=== PATIENT | female | born 1995 | race Caucasian/White ===

== ENCOUNTER 2023-01-08 09:59 | Outpatient (RCR) | payer BC, SELFPAY ==
--- NOTE | 2023-01-08 11:15 | BH.SGPN.GN ---
Behaviors/Verbalizations/Mental Status: []Pt alert and oriented, neatly dressed and groomed. Eye contact good. Motor activity appropriate. Speech within normal limits. Affect congruent, mood anxious. Thoughts linear, logical, no signs of hallucinations or delusions. Client Response/Progress/Benefit: [] Pt responded well to session, engaged in the experiential activity and attentive throughout group processing. Pt reported fear of failure has kept Pt from job opportunities, making friends, social situations, and living on her own. Pt completed fear of failure worksheet and was able to identify thoughts and behaviors that reinforce personal fear of failure including people pleasing, fear of judgment, and the ?what ifs?. Pt participated in group discussion regarding strategies to overcome fear of failure. Identified wanting to work on positive affirmations. Appeared to benefit from increased knowledge of strategies to combat fear of failure and gaining self-awareness. Pt will continue IOP tx to prevent decompensation, gain healthy coping skills, and improve daily functioning. ? Narrative Note: []
--- NOTE | 2023-01-08 14:43 | BH.MTP_ITS ---
Master Treatment Plan Patient Information Program Physician:: Dr. Trammell Primary Therapist:: Humaira Curran, [facility] Psychiatric Diagnoses Psychiatric Diagnoses:: 1. Bipolar 2 disorder (currently depressed) 2. PTSD 3. Generalized anxiety disorder 4. Binge eating disorder 5. Strong cluster B traits Diagnosis Code(s):: F31.81 Estimated LOS Estimated LOS (in weeks):: 6 Problem/Goal #1 Problem/Goal #1 Stated Goal:: Client will increase mood stability, decrease depressive symptoms, and anhedonia due to Bipolar II disorder through Intensive Outpatient Program. Description of Barriers: Potential treatment barriers include: negative thoughts, mood instability, impulsivity, distorted thoughts, limited healthy supports, and stressful home environment. Functional Impact: The patient is a 27-year-old single, female with a history of bipolar 2 depression, anxiety and suicidal ideation which has been worsening over the past 3 months. Work is a big stressor for the patient as there has been big changes at work and has been hard for her to function well at work and understand all the changes required in her job position. Planning on being FMLA due to MH impacting work functioning. The patient has a history of self-harm by cutting and the most recent episode was in July 2022 when she got in a hot shower to burn her skin. The patient has increased her alcohol use over the past 3 months and it had been up to 3-4 drinks about 4 days each week. She endorses sadness, hopelessness, worthlessness, apathy, lack of motivation, anhedonia, initial insomnia, low energy, decreased concentration, guilt, passive thoughts of , passive, fleeting suicidal ideation a few times a week only. She is a worrier by nature and has not had any panic attacks though since 1 month ago. Objectives Objective #1: Stated Objective: Client will learn and utilize 2-3 healthy coping strategies to manage depressive and hypomanic symptoms. Interventions: Therapist and groups will utilize CBT techniques to assist client with understanding the connection between thoughts, feelings and behaviors. Education will be provided on behavioral activation. Therapist will assist client in learning internal coping strategies to manage depressive symptoms, along with helping client identify triggers. Therapist will assist client with creating a hypomanic plan to help decrease impulsive choices/spending. Discharge Criteria: Client will have achieved this goal when can verbalize and has practiced at least 2 healthy coping strategies that successfully manage depressive and hypomanic symptoms. Target Date: 02/19/23 Review Date: 02/05/23 Objective #2: Stated Objective: Pt will decrease depressive symptoms AEB pt?s score on the DSM 5 cross-cutting measure and improve pt?s daily functioning. Interventions: Through groups and individual therapy, pt will be provided with education on cognitive distortions, mistaken beliefs, and identifying and combating negative self-talk. Therapist will assist pt with getting back into the activities she once enjoyed as well as increasing healthy coping strategies. Discharge Criteria: Pt will have met this goal when pt?s score on the DSM 5 cross cutting measure for depression has been decreased and per pt?s report daily functioning has improved. Target Date: 02/19/23 Review Date: 02/05/23 Problem/Goal #2 Problem/Goal #2 Stated Goal:: Stabilize anxiety level while increasing ability to function and decreasing ruminative thoughts on a daily basis through Intensive Outpatient Program. Functional Impact: The patient is a 27-year-old single, female with a history of bipolar 2 depression, anxiety and suicidal ideation which has been worsening over the past 3 months. Work is a big stressor for the patient as there has been big changes at work and has been hard for her to function well at work and understand all the changes required in her job position. Planning on being FMLA due to MH impacting work functioning. The patient has a history of self-harm by cutting and the most recent episode was in July 2022 when she got in a hot shower to burn her skin. The patient has increased her alcohol use over the past 3 months and it had been up to 3-4 drinks about 4 days each week. She endorses sadness, hopelessness, worthlessness, apathy, lack of motivation, anhedonia, initial insomnia, low energy, decreased concentration, guilt, passive thoughts of , passive, fleeting suicidal ideation a few times a week only. She is a worrier by nature and has not had any panic attacks though since 1 month ago. Objectives Objective #1: Stated Objective: Client will learn and implement 2-3 calming skills to reduce overall anxiety and manage anxiety symptoms. Interventions: Therapist and groups will teach calming/relaxation skills and how to apply these skills to everyday life. Discharge Criteria: Client will have achieved this goal when can verbalize and consistently utilize at least 2 calming strategies that client reports help decrease anxious symptoms. Target Date: 02/19/23 Review Date: 02/05/23 Objective #2: Stated Objective: Pt will decrease anxious symptoms AEB pt?s score on the DSM 5 cross-cutting measure improve pt?s daily functioning. Interventions: Through groups and individual therapy, pt will be provided education about anxiety?s impact on body and common physiological reaction to anxiety. Therapist will teach pt appropriate breathing techniques and build healthy coping skills to manage daily anxieties. Discharge Criteria: Pt will have met this goal when pt?s score on the DSM 5 cross cutting measure for anxiety has been decreased and per pt?s report daily functioning has improved. Target Date: 02/05/23 Review Date: 02/19/23
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
--- NOTE | 2023-01-08 15:26 | BH.MDN ---
Multi-Disciplinary Note Note 30-min Individual: Time Started:: 09:00 Date: 01/08/23 Purpose of session/treatment goals addressed:: Purpose of session was to gather background information, build rapport, and identify treatment goals for IOP. Eye Contact:: Good Motor Activity:: Appropriate Appearance:: Neat Speech:: Appropriate Mood:: Anxious Affect:: Congruent Thoughts:: Linear, Logical and No evidence of hallucinations/delusions noted Staff Interventions:: psychoeducation on: (cognitive triangle and behavior activation), CBT techniques, rapport building, treatment planning and goal setting Client Response:: Client responded well to session as evidenced by her opening up to therapist. Client shared that 3 months ago she started to notice her depression and anxiety worsening. Client stated stressful to live at home because she is often in conflict with her mom. Client reported there were changes at work that have increased her stress and she was having difficulty performing at her baseline. Client stated she started having more suicidal thoughts which prompted her to reach out for help. Client identified additional stressor as her new relationship because there is constant bickering between them. Client stated although they've only been dating for two months she doesn't want to end it because he does provide emotional support at times and reported he has met her family. Client reported she has noticed her coping skills with all of her stressors is drinking alcohol and starting to engage in binge eating again. Client stated she has been treated for binge eating disorder in the past and still is connected with this therapist. Client reported while in IOP she would like to learn new strategies to help her manage depressed and anxious symptoms. Client stated she wants to learn about healthy relationships because she stated she doesn't believe she knows what healthy looks like. Client responded well to psychoeducation about cognitive triangle and behavior activation. Client shared she used to engage in hobbies/activities like: hiking, swimming, walking, and crafting. Client reported she has not done these things in several months. Stated her goal for the next week is to engage in at least one of her previous hobbies. Risks/Concerns:: Daily thoughts of suicide. Denies active plan or intention to date. feels able to maintain safety. no access to firearms. Progress Toward Goals/Plan:: Progress not observed, first day in IOP. Session focused on building rapport, gathering background information, identifying current symptoms, and solidifying treatment goals. Client to continue IOP to improve daily functioning, increase healthy coping, and prevent decompensation. Time Stopped:: 09:35
--- NOTE | 2023-01-10 09:20 | BH.NA ---
Physical Data Vital Signs Pulse Rate: 68 Blood Pressure: 143/94 Height/Weight Height: 1.66 m Weight:: 107.501 kg Weight in Pounds: 237.0 lbs Current Medication Compliance Medication Compliance Do you take your medication as prescribed?: Yes Nutritional History Appetite Nutritional Instructions: Describe your appetite:: Fair Additional nutritional information:: Client states she has gained about 5lbs in the last month. Client states she has had issues with binge eating since 2018 and has had some counseling regarding it, but states the last month she has had an increase of binge eating, but states she only occasionally vomits. Functional Assessment Sleep Pattern Describe any problems with sleeping: Client states she sleeps about 6 hours per night. Activities Motor Activity:: Functional Sensory/Communication Assess Vision Problems Do you have any vision problems?: Glasses Communication Problems Do you have difficulty understanding what people are saying?: No Medical Problems/History Hematologic Conditions Hematologic: Anemia (taking iron supplement) and Other (See comments) ([place] type 1) Pain Assessment Do you have acute or chronic pain?: No Surgical History Surgical History Have you had any surgeries? If so, list type and date:: Yes (wisdom teeth, tonils, gallbladder, knee) Substance Abuse Substance Abuse Please describe substance abuse in the last 30 days:: Client states for the past 1-3 months, she has been drinking alcohol 3-4 days per week, 3-4 drinks per day. Client denies tobacco or substance use. Client drinks 3 cups of caffeinated coffee per day. Mental Status Summary Mental Status Significant Findings/Observations on Appearance and Mood:: Client is alert and oriented x 4. Client is cooperative with assessment. Client makes good eye contact. Client's voice has normal rate and volume. Client has appropriate affect. Client has normal processing. Client denies delusions/hallucinations. Client denies SI this day. Suicide Assessment Suicidal Ideation Are you currently or have you been suicidal in the past?: Yes Suicidal Intentional Rating Scale (SIRS): Suicidal thoughts (past) (denies SI today, reports some passive SI at times but no intent/plan) Physician Notification Past Psychiatric History MH Treatment Hx Past Psychiatric Medications:: Latuda and Abilify made her tired, Wellbutrin gave her skin crawling feeling, and Effexor Age of first mental health symptoms: Client first took medication for depression/anxiety around age 21. Client was diagnosed as bipolar in 2019, around age 23. Fall Risk Assessment Age Age: Less than 60 Mental Status Mental Status: Willing & able to ask for assistance when needed Physical Status Physical Status: No problems Impairments Impairments: None Elimination Elimination: Continent AND independent Gait or Balance Gait or Balance: Walks independently Hx of Falls History of falls in the past 6 months: No known history Medications/Substances Psychotropics:: Antidepressants and Antipsychotics Medications/substances used within the past 24 hours or ordered to administer: 1-2 of the medications/substances listed above Total Score Total Points:: 1 RN Summary of Impressions Impressions Recommendations Impressions: Psychiatric Issues: 1. Bipolar 2 disorder (currently depressed) 2. PTSD 3. Generalized anxiety disorder 4. Binge eating disorder 5. Strong cluster B traits Level of Care How do the client's current symptoms and functional deficits support need for this level of care?: Client was referred to IOP by her outpatient psychiatrist for increased depression and SI. Client states the last several months have been stressful. Client reports stressors being changes at work that have made her job more difficult, her brother getting in December, and she is in a new relationship. Client reports some passive thoughts of SI at times, but denies intent or plan and states the thoughts pass quickly. Client does report anhedonia, erratic mood, decreased energy, and feeling overall depressed. Client states her binge eating has made her mental health worse as well. IOP will promote gains and prevent further decompensation while providing social support and skills training.
--- NOTE | 2023-01-10 10:05 | BH.SGPN.GN ---
Behaviors/Verbalizations/Mental Status: [] Client alert and oriented, casually dressed and groomed. Eye contact good. Motor activity appropriate. Speech within normal limits. Affect constricted, mood dysthymic. Thoughts linear, logical, no signs of hallucinations or delusions. Client Response/Progress/Benefit: []Client was an active participant in activity and taking notes during group discussion. Attentive during psychoeducation on coping skills, why people use unhealthy coping skills, and how to replace unhealthy coping skills. Group came up with list of negative coping skills that included substance use, avoidance, lashing out, and escaping from reality. Group discussed the effects of how negative coping skills can impact mental health in a negative way. Benefited from increased understanding of unhealthy coping skills and the need for developing healthy interna and external coping skills. client will continue IOP tx to challenge negative thought patterns and increase consistent application of self care. Narrative Note: []
[2023-01-10 11:01] VITALS: BP 143/94; PULSE 68
--- NOTE | 2023-01-10 11:05 | BH.SGPN.GN ---
Behaviors/Verbalizations/Mental Status: [] Client alert and oriented, neatly dressed and groomed. Eye contact good. Motor activity appropriate. Speech within normal limits. Affect constricted, mood euthymic. Thoughts linear, logical, no signs of hallucinations or delusions. Client Response/Progress/Benefit: [] Client responded well to session AEB taking notes and providing input and examples throughout. Group discussed the different categories of coping skills which included distraction, emotional release, grounding, self-love, and thought challenging. Client created a coping skill menu identifying various skills to try in each category. Client?s coping skill menu included: phone games, phone a friend, breathing, saying no to some things, and writing down 3 positives each day. Appeared to benefit from increasing repertoire of healthy coping skills. Client will continue IOP tx to improve daily functioning and prevent decompensation. Narrative Note: []
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
--- NOTE | 2023-01-10 13:35 | BH.DR.ITP ---
Initial Treatment Plan Patient Information Visit Information: ADMISSION DATE: EXPECTED LOS: 4-6 weeks Problems/Symptoms Problem #1:: Depression Symptom:: Sadness, hopelessness, guilt, anhedonia, lack of motivation, low energy, decreased concentration, passive thoughts of , passive, fleeting suicidal ideation Problem #2:: Anxiety Symptom:: Worry, rumination, flashbacks, avoidance, reexperiencing
--- NOTE | 2023-01-12 09:00 | BH.SGPN.GN ---
Behaviors/Verbalizations/Mental Status: [] Eye contact is good. Motor activity is appropriate. Appearance is casual. Speech is Appropriate. Mood is depressed/irritable. Affect is congruent. Thoughts are linear and logical. No evidence of psychosis. Reviewed daily check in sheet and pt reports 1/5 for suicidal thoughts and 1/5 for intent. This is actually a decrease in scores from earlier this week. Client Response/Progress/Benefit: [] Pt participated at times during the group discussion. Attentive. Emotion for today is tired. Daily symptom tracker notes 3/5 for anxiety and 2/5 for depression. Mental health win was that went to the gym twice this week. Sahred how this is helpful to her mental health. Another win included cleaning last night. She talked at leght regarding people pleasing behaviors and how they impact her mental health. I gave up my weekend to someone else again. Pt reports that she would like to have the weekend to herself (Self-care) as she has not had this for several months, however she agreed to a function. Feels obligated to spend time with others even though it is not enjoyable and often leads to feeling burned out. Group discussion on assertive communication of needs, boundary setting, and impact of people pleasing which was beneficial. Will contine in IOP to maintain Narrative Note: []
--- NOTE | 2023-01-12 10:10 | BH.SGPN.GN ---
Behaviors/Verbalizations/Mental Status: []Client alert and oriented, casually dressed and groomed. Eye contact good. Motor activity appropriate. Speech within normal limits. Affect congruent, mood anxious. Thoughts linear, logical, no signs of hallucinations or delusions. Client Response/Progress/Benefit: []Client receptive to session AEB providing input throughout, listening attentively to others, and taking notes. Attentive throughout psychoeducation on the cognitive triangle and maintenance cycles. Engaged in group discussion reviewing the impact of daily activities and behaviors in either reinforcing unhealthy maintenance cycles and depression or assisting in reducing symptoms (?down? vs ?up? activities). Client identified common ?down? activities they engage in as: staying in bed, not doing chores, not doing self-care, and taking on too many tasks. Common ?Up? activities client identified included: taking a bath, getting outside in nature, cuddling pets, video games, and working out. Appeared to benefit from increased awareness of current behaviors and impact these have on mental health. Recommended to continue IOP tx to decrease anxiety, increase healthy coping, and prevent decompensation.
--- NOTE | 2023-01-12 11:15 | BH.SGPN.GN ---
Behaviors/Verbalizations/Mental Status: []Pt alert and oriented, neatly dressed and groomed. Eye contact good. Motor activity appropriate. Speech within normal limits. Affect congruent, mood euthymic. Thoughts linear, logical, no signs of hallucinations or delusions. Client Response/Progress/Benefit: []Pt responded well to session, attentive and engaged in activity. Group shared having patience and being willing to re-evaluate helped the group be success. Group discussed values and the benefits that knowing one's values can have on one's mental health. These included: increasing motivation, resolved cognitive dissonance, and less stress. Pt explored own values and identified physical wellbeing and hobbies as their top two values. Pt set a goal to exercise 4 times a week and engage in one of her hobbies 30min a day to live according to values. Pt appeared to benefit from exploring values and creating a weekly goal. Pt will continue IOP tx to prevent decompensation, improve daily functioning, and increase healthy coping skills. Narrative Note: []
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
--- NOTE | 2023-01-17 11:10 | BH.SGPN.GN ---
Behaviors/Verbalizations/Mental Status: [] Eye contact is good. Motor activity is appropriate. Appearance is casual. Speech is Appropriate. Mood is depressed. Affect is congruent. Thoughts are linear and logical. No evidence of psychosis. Client Response/Progress/Benefit: [] Pt was an active participant in group discussions and experiential activity. Attentive during psychoeducation. Patient participated during interactive discussion on strategies to overcome several obstacles to mental wellness including People-pleasing, Low Self-esteem, unhealthy coping skills, isolation, loneliness, and negative thinking. Pt choose the barrier of people-pleasing to work on this week and identified strategies to incorporate including setting boundaries and delaying responses to allow myself from over-extending myself. Benefited from increased awareness of obstacles to mental wellness and strategies to help overcome those obstacles. Will continue in IOP to prevent decompensation, stabilze mood, and increase healthy coping. Narrative Note: []
--- NOTE | 2023-01-18 09:05 | BH.SGPN.GN ---
Behaviors/Verbalizations/Mental Status: [] Eye contact is good. Motor activity is appropriate. Appearance is casual. Speech is Appropriate. Mood is depressed. Affect is congruent. Thoughts are linear and logical. No evidence of psychosis. Reviewed daily check in sheet and pt reports 2/5 for suicidal thoughts and 1/5 for intent. This is below baseline for patient showing improvement. Client Response/Progress/Benefit: [] Pt participated at times during the group discussion. Attentive. Daily symptom tracker notes 5/5 for anxiety and 4/5 for depression. Emotion for today is determined. Mental health wins include cleaning her house and decreasing clutter. Elaborated on how these are mental health wins noting increased motivation/energy and completing tasks. Admits that getting up getting here was a challenge this AM however able to use opposite-action and thought reframing skills to increase motivation to get to treatment. Progress noted per pt report as she is using skills and reports completing responsibilities rather than avoiding. Benefited from group support, encouragement, and feedback. Will continue in IOP to prevent decompensation, maintain safety, and improve functioning to return to work. Narrative Note: []
--- NOTE | 2023-01-18 10:10 | BH.SGPN.GN ---
Behaviors/Verbalizations/Mental Status: []Pt alert and oriented, neatly dressed and groomed. Eye contact good. Motor activity appropriate. Speech within normal limits. Affect congruent, mood depressed. Thoughts linear, logical, no signs of hallucinations or delusions. Client Response/Progress/Benefit: []Pt was an active participant in group discussions and activity. Attentive during psychoeducation. Pt along with peers were able to identify several negatives on the picture given to the group. Pt and peers also identified positives in the picture and made the connection that finding positives is much more difficult. Interactive discussion on the definition of perspective, how perspective is formed, and why perspective is important in treatment. Pt along with peers also identified that perspective can either motivate and encourage treatment or be a barrier to receiving help. Pt shared today her perspective is more negative due to recently having more panic attacks. However, pt shared she used opposite action today which is helping pt challenge her perspective and be more hopeful. Pt reflected that being more hopeful helps pt stay motivated to get better. Will continue in IOP to stabilize moods, reduce isolation, and prevent decompensation. Narrative Note: []
--- NOTE | 2023-01-18 10:10 | BH.SGPN.GN ---
Behaviors/Verbalizations/Mental Status: [] Eye contact is good. Motor activity is appropriate. Appearance is casual. Speech is Appropriate. Mood is anxious. Affect is congruent. Thoughts are linear and logical. No evidence of psychosis. Client Response/Progress/Benefit: []Pt engaged participant AEB listening to others, engaging in activity, and providing feedback at times. Attentive during psychoeducation and provided insight into obstacles in the way of mental wellness. Pt shared with group current mental health reality and desired mental health reality. Stated making decisions and coming to therapy as steps she is currently making to get closer to desired reality. Identified barriers to desired reality include: poor boundaries, bad coping skills, and people pleasing. Benefited from taking look at current mental health state and obstacles for progress. Pt to continue IOP to increase healthy coping, decrease anxiety, and prevent decompensation.
--- NOTE | 2023-01-18 11:10 | BH.SGPN.GN ---
Behaviors/Verbalizations/Mental Status: []Pt alert and oriented, neatly dressed and groomed. Eye contact good. Motor activity appropriate. Speech within normal limits. Affect congruent, mood present. Thoughts linear, logical, no signs of hallucinations or delusions. Client Response/Progress/Benefit: []Pt was attentive and contributed to small group discussion. Pt completed strengths exploration worksheet, identifying creativity, kindness, and adventurousness as personal strengths. Pt able to acknowledge how these strengths are helping pt and can continue to help pt in mental health journey. Pt worked with group to identify strategies that can help increase utilization of personal strengths and how to challenge one?s perspective in general. Pt identified wanting to work on using opposite action and practicing self-affirmations to help challenge perspective. Benefited from identifying personal strengths and strategies for enhancing use of identified strengths. Pt to continue IOP tx to prevent decompensation, improve daily functioning, and increase self-confidence. Narrative Note: []
--- NOTE | 2023-01-19 10:10 | BH.SGPN.GN ---
Behaviors/Verbalizations/Mental Status: []Pt alert and oriented, casually dressed and groomed. Eye contact fair. Motor activity appropriate. Speech within normal limits. Affect constricted, mood dysthymic. Thoughts linear, logical, no signs of hallucinations or delusions. Client Response/Progress/Benefit: []Pt receptive of session, actively engaged throughout AEB taking notes and listening to discussion. Appeared to connect with group topic of cognitive distortions and the impact of thought patterns on mental health, coping behaviors, and relationships. Pt reports connecting with distortions of all or nothing and shoulds. Pt stated getting stuck in the black or white keeps her from new opportunities and not taking action. Pt appeared to benefit from gaining insight on distorted thinking patterns and how this impacts overall mental health. Will continue IOP tx to increase consistent use of healthy coping, improve crisis management, and prevent decompensation.
--- NOTE | 2023-01-19 11:10 | BH.SGPN.GN ---
Behaviors/Verbalizations/Mental Status: [] Eye contact is good. Motor activity is appropriate. Appearance is casual. Speech is Appropriate. Mood is euthymic. Affect is full. Thoughts are linear and logical. No evidence of psychosis. Client Response/Progress/Benefit: [] Pt was an active participant during group discussions and activity. Pt was placed in a smaller group and participated in quiz-show format in which small groups competed against each-other to answer questions based on identifying, challenging, and reframing cognitive distortions. Pt was engaged in her smaller group, participated in group interactions to brainstorm answers, and appeared to be comprehending cognitive distortions. Stated They are similar to logical fallacies which helped me a lot. Benefited from gaining further insight and awareness of cognitive distortions as well as practicing ways to reframe and challenge thoughts. Will continue in IOP to prevent decompensation, increase healthy coping, and improve functioning. Narrative Note: []
--- NOTE | 2023-01-22 09:00 | BH.SGPN.GN ---
Behaviors/Verbalizations/Mental Status: [] Eye contact is good. Motor activity is appropriate. Appearance is casual. Speech is Appropriate. Mood is depressed. Affect is congruent. Thoughts are linear and logical. No evidence of psychosis. Reviewed daily check in sheet and no reports of suicidal ideations or intent. Client Response/Progress/Benefit: [] Pt participated at times durig the group discussion. Attentive. Daily symptom tracker notes 09/10 for depression and anxiety. Reports improve mood and functioning since last week. Shared that she started a journal over the weekend. Briefly described her motivation for starting the journal as well as what she plans to enter in the journal. Utilized self-care and gave herself some time to decompensate after a stressful day. Shared times over the weekend in which her depression and anxiety where significant. Benefited from group support, encouragement, and feedback. Progress noted per pt report. Will continue in IOP to maintain safety, prevent decompensation, and to improve functining to return to work. Narrative Note: []
--- NOTE | 2023-01-22 10:15 | BH.SGPN.GN ---
Behaviors/Verbalizations/Mental Status: []Pt alert and oriented, casually dressed and groomed. Eye contact good. Motor activity appropriate. Speech within normal limits. Affect congruent, mood euthymic and anxious. Thoughts linear, logical, no signs of hallucinations or delusions. Client Response/Progress/Benefit: []Pt responded well to session, attentive and providing to discussion. Pt connected with the quote and discussion reviewing the functions of various emotions. Attentive throughout psychoeducation on the functional role and benefits of guilt, as well as differences between appropriate and inappropriate guilt. Group discussed the harmful impacts of unmanaged guilt which included poor boundaries, feeling inadequate, and creating an unhealthy maintenance cycle. Pt participated in group activity highlighting the impacts of inappropriate guilt in team collaboration or reaching a goal. Pt then completed a self-reflection activity in which they identified their own experiences with inappropriate guilt and impacts on pt?s mental health. Shared struggling with inappropriate guilt when someone else is upset or had a bad day. Pt appeared to benefit from learning about the different types of guilt and how unmanaged guilt can impact mental health. Pt will continue IOP tx to increase mood stability, promote healthy communication with supports, and continue to improve daily functioning. Narrative Note: []
--- NOTE | 2023-01-22 11:15 | BH.SGPN.GN ---
Behaviors/Verbalizations/Mental Status: []Pt alert and oriented, neatly dressed and groomed. Eye contact good. Motor activity appropriate. Speech within normal limits. Affect congruent, mood depressed. Thoughts linear, logical, no signs of hallucinations or delusions. Client Response/Progress/Benefit: [] Pt engaged participant AEB listening attentively to others and providing input throughout group. During challenge activity pt worked cooperatively with small group. Pt made connection that it takes patience and problem solving to work through appropriate and inappropriate guilt. Pt worked with their small group to identify strategies to manage unhealthy guilt. Pt stated pt often feels inappropriate guilt when pt puts her needs as a priority. Pt selected wanting to work on reducing her apologizing to challenge inappropriate guilt. Pt seemed to benefit from learning about strategies to manage appropriate and inappropriate guilt. Pt to continue IOP to improve daily functioning, reduce negative thinking patterns, and improve self-esteem. ? Narrative Note: []
--- NOTE | 2023-01-24 09:00 | BH.SGPN.GN ---
Behaviors/Verbalizations/Mental Status: [] Eye contact is fair. Motor activity is appropriate. Appearance is casual, slightly disheveled. Speech is Appropriate. Mood is depressed. Affect is constricted. Thoughts are linear and logical. No evidence of psychosis. Reviewed daily check in sheet and no reports of suicidal ideations or intent. Client Response/Progress/Benefit: [] Pt participated when prompted. Attentive. Daily symptom tracker notes 5 for depression and /5 for anxiety. Identified mood and functioning as worse today compared to Sunday. Client reported mental health positive as meal prepping for a couple of days. Stated additional positive as doing her makeup this morning despite feeling crappy yesterday and today. Reported current stressor as noticing increased depressed symptoms. Seemed to benefit from support from peers. Client reported he Will continue in IOP to prevent decompensation, decrease anxiety, and continue use of healthy coping skills.
--- NOTE | 2023-01-24 21:20 | BH.MDN ---
Multi-Disciplinary Note Note 45-min Individual: Time Started:: 11:20 Date: 01/24/23 Purpose of session/treatment goals addressed:: Purpose of session was to address goals 1 and 2 from MTP. Eye Contact:: Fair Motor Activity:: Restless Appearance:: Casual (slightly disheveled compared to her baseline) Speech:: Appropriate Mood:: Anxious and Depressed Affect:: Constricted Thoughts:: Linear, Logical and No evidence of hallucinations/delusions noted Staff Interventions:: thought challenging, motivational interviewing, CBT techniques, strengths perspective, taught coping skills (malhotra mind) and other (safety plan) Client Response:: Client reported she has been continuing to struggle since last weekend. Client reported she did follow through of engaging in behavior activation by doing renetta art again. Client reported she also started to use the brain dump journal at night to help with sleeping and decreasing her racing thoughts. Client reported she also journaled about her boundaries within her relationship, expectations of each other, and identified her deal breakers. Client stated she had really good conversation with her boyfriend and is hopeful they are on the same page. Client stated she thinks she is struggling more because she feels like there is no area of her life that is stable. Client stated there is constant chaos at home, conflicts with her boyfriend, and worries about returning back to work because of the stress and chaos. Client connected with therapist suggestion of journaling about what she enjoys about work and what is within her control when she returns to help manage the parts of her job that she doesn't enjoy. Client worked with therapist to complete safety plan to help with crisis management. Client agreed it would be helpful to have a crisis plan since she continues to struggle with utilizing healthy coping skills in the moment. Client wants to decrease her use of drinking alcohol and binging food as a coping skill. Client agreeable to communicate importance of her family to not have alcohol around and to encourage boyfriend to be supportive of her goal of not drinking alcohol. Risks/Concerns:: Client reports recent passive thoughts of . Denies active suicidal ideation, plan or intention to date. Future oriented. No access to firearms. Identifies her animals and family as protective factors. Completed safety plan together and provided copy for patient. Progress Toward Goals/Plan:: Continued decompensation with client reporting increased depression and anxiety over the last two weeks. Client's relationship seems to be trigger to increased depression and use of destructive coping skills like drinking. Progress can be noted with client reporting starting to use skills like opposite action and getting back involved in hobbies. Client to continue IOP to increase healthy coping skills, challenge negative thoughts, and prevent decompensation. Time Stopped:: 12:00
--- NOTE | 2023-01-25 10:10 | BH.SGPN.GN ---
Behaviors/Verbalizations/Mental Status: [] Eye contact is good. Motor activity is appropriate. Appearance is casual. Speech is Appropriate. Mood is anxious. Affect is congruent. Thoughts are linear and logical. No evidence of psychosis. Client Response/Progress/Benefit: [] Pt was an active participant in group discussions and activities. Attentive during psychoeducation. Engaged during activity in which she identified which type of foods (i.e. carbs, sugar, salt, fast food, caffeine, etc) she seeks out when sad, tired, angry, rushed, anxious, etc. Pt was able to identify an unhealthy food cycle which included; don't pack or prep lunch --> fast food. sweet/salty snacks ---> feel guilty, crave unhealthy dinner, tired. Pt was able to identify the impact that certain foods have on her mental health which was beneficial. Will continue in IOP to prevent decompensation, stabilize mood, and increased healthy coping skills. Narrative Note: []
--- NOTE | 2023-01-26 09:00 | BH.SGPN.GN ---
Behaviors/Verbalizations/Mental Status: [] Eye contact is good. Motor activity is appropriate. Appearance is casual. Speech is Appropriate. Mood is depressed. Affect is congruent. Thoughts are linear and logical. No evidence of psychosis. Reviewed daily check in sheet and no reports of suicidal ideations or intent. Client Response/Progress/Benefit: [] Participated at times during the group discussion. Attentive. Shared with the group that she was ?spiraling? last night. Reports depression and overwhelming negative thoughts. Shared anxiety, panic, and passive thoughts of . She however was able to identify her warning signs earlier than in the past and proceeded to utilize skills which ultimately proved to be beneficial. She reached out to support and was able to utilize internal coping skills to minimize depression and anxiety. Progress noted with increased confidence in her ability to manage crisis. Benefited from group support, encouragement, and feedback. Will continue in IOP to maintain safety, prevent decompensation, and to stabilize mood to return to work. Narrative Note: []
--- NOTE | 2023-01-26 10:15 | BH.SGPN.GN ---
Behaviors/Verbalizations/Mental Status: []Pt alert and oriented, casually dressed and groomed. Eye contact good. Motor activity appropriate. Speech within normal limits. Affect constricted, mood agitated. Thoughts linear, logical, no signs of hallucinations or delusions. Client Response/Progress/Benefit: []Pt was an active participant during small group discussions. Attentive during psychoeducation on the six types of boundaries. Pt along with peers contributed to interactive discussion on defining what a boundary is and group identified challenges to setting boundaries. Pt discussed personal barriers of fear of retaliation. Pt?s group also identified the benefits of boundary setting which included ?self-respect and clear expectations.?? Pt contributed during his small group discussion. benefited from increased awareness and insight on the importance/benefit to setting health boundaries. Will continue IOP tx to improve mood stability, reduce isolation, and increase emotional regulation skills. Narrative Note: []
--- NOTE | 2023-01-26 15:34 | BH.MDN ---
Multi-Disciplinary Note Note 45-min Individual: Time Started:: 11:10 Date: 01/26/23 Purpose of session/treatment goals addressed:: Purpose of session was to address goals 1 and 2 from MTP. Pt's mood was more down throughout day, not her typical behavior so asked if she needed a check-in and she reported yes. Eye Contact:: Good Motor Activity:: Restless Appearance:: Casual (slightly disheveled compared to her baseline.) Speech:: Rapid Mood:: Euthymic and Other (hypomanic) Affect:: Full Thoughts:: Racing and No evidence of hallucinations/delusions noted Staff Interventions:: thought challenging, CBT techniques, mindfulness skills, strengths perspective, taught coping skills (created plan to help manage impulsive urges while hypomanic) and other (reviewed safety plan created earlier in week) Client Response:: Client reported she continued to struggle since Sunday with mood spiraling down. Client stated she did try to use skills yesterday like walking, renetta art, and breathing. Client stated the skills weren't helping calm or mind or improve her mood. Client reported she started binge eating to make herself feel better, but stated it only made her feel worse. Client stated she then went to the gas station and picked up alcohol. Client reported she drank alcohol to make her mind stop racing. Client reported she didn't take her medications last night because of drinking and didn't sleep much, but is feeling energized today. Client stated she thinks she is in a hypomanic state today due to increased energy, ideas of buying things impulsively, and desire to book a trip. Client reported when she is hypomanic it typically lasts for 2-4 days then her mood usually drops into a deeper depression. Client stated she doesn't know what to do when she is hypomanic to stop herself from making poor decisions. Client worked with therapist to develop a plan. Client receptive to giving her wallet and keys to her mom or sister so she doesn't drive somewhere impulsively and doesn't spend lots of money on things she doesn't need. Client also will communicate to family and boyfriend that she needs to refrain from alcohol use. Client reported her mom has been locking up the alcohol at home, but reported sometimes her boyfriend will buy alcohol for her or suggest them getting drinks. Client agreed she will be very clear with her boyfriend about what she needs. Client agreed to also remove her saved credit card information off any apps and laura devices so she doesn't make any large purchases. Client also agreeable to talk with her mom and sisters about locking up sharp objects and medications as a way to be proactive in case her mood does drop over the weekend into a deeper depression. Client stated she is spending the weekend with her boyfriend and thinks this will help because she can be honest with him about what's going on. Client reported feels comfortable with plan developed. Risks/Concerns:: Client is reporting increased impulsive thoughts and thinks she is hypomanic. Developed plan to help decrease impulsive decisions. See above for plan. Client denies active suicidal ideation, plan, or intention to date. Client reports ability to keep self safe. Client reviewed safety plan with therapist. Progress Toward Goals/Plan:: Progress continues to decompensate AEB client reporting use of binge eating and alcohol use as coping skills. However, client did note she attempted use of several healthy coping skills prior to engaging in her unhealthy skills, which is progress compared to the previous weeks. Client struggling with mood instability and severe anxiety. Client struggling with reverting back to unhealthy skills of binge eating and drinking alcohol. Client to continue IOP to increase consistent use of healthy coping, challenge distorted thoughts, and prevent decompensation. Time Stopped:: 11:50
--- NOTE | 2023-01-29 09:00 | BH.SGPN.GN ---
Behaviors/Verbalizations/Mental Status: []Pt alert and oriented, casually dressed and groomed. Eye contact fair. Motor activity restless. Speech within normal limits. Affect constricted, mood anxious. Thoughts linear, logical, no signs of hallucinations or delusions. Reviewed pt?s symptom tracker, no reported suicidal ideation, denies plan, or active intent. Client Response/Progress/Benefit: [] Pt responded well to session, open to contributing with group and engaged. Per symptom tracker pt reports a 0/5 for depression and 3/5 for anxiety. Patient reported mental positive as getting out of the house and going hiking over the weekend. Stated she felt relaxed and uplifted when hiking. Client stated additional mental thought when as doing a guided meditation to help herself calm down after having a panic attack. Client stated feeling anxious about going back to work for 2 days next week. Stated she's been working on journaling about what is within her control when she goes back to work. Additional win as following through with plans created in individual therapy session from last week. Seemed to benefit from support from peers. Pt will continue IOP tx to continue use of healthy coping skills, assist with transition back to work, and prevent decompensation.
--- NOTE | 2023-01-29 10:10 | BH.SGPN.GN ---
Behaviors/Verbalizations/Mental Status: [] Eye contact is good. Motor activity is appropriate. Appearance is casual. Speech is Appropriate. Mood is anxious. Affect is congruent. Thoughts are linear and logical. No evidence of psychosis. Client Response/Progress/Benefit: [] Pt was an active participant in group discussion. Attentive during psychoeducation on SMART goals. Participated in experiential activity. Engaged during interactive discussion on the benefits of setting goals which group identified as; increase self-worth, increase confidence, can motivate us, can lead to personal growth, and can give one a sense of purpose. Participated during interactive discussion on possible obstacles to obtaining goals which involved; little patience, low motivation, feeling burned out, setting unrealistic goals, limited time, stressors, other responsibilities, negative self-talk, doubt, cognitive distortions, lack of resources, and lack of focus. Benefited from increased understanding of benefits of goals, obstacles to obtaining goals, and methods for setting appropriate goals (SMART goals). Will continue in IOP to prevent decompensation, stabilize mood, and improve functioning to return to work. Narrative Note: []
--- NOTE | 2023-01-29 11:15 | BH.SGPN.GN ---
Behaviors/Verbalizations/Mental Status: []Pt alert and oriented, casually dressed, appropriately groomed. Eye contact good. Motor activity appropriate. Speech within normal limits. Affect congruent, mood dysthymic. Thoughts linear, logical, no signs of hallucinations or delusions. Client Response/Progress/Benefit: []Pt was engaged during discussion and willing to complete the worksheet challenging them to develop a personal SMART goal. Pt chose the goal of going to the gym and walking on the treadmill at least 3x in the next week. Pt stated this will benefit them by getting them out of the house, relieving stress, and releasing dopamine to improve her mood. Pt identified barriers which included being sore, too tired, low motivation, and self-conscious. Identified for feeling tired she will use opposite action and challenge herself to stretch before in order to help wake herself up. Pt receptive to identifying solutions for these barriers and willing to begin working on this goal. Benefited from this group by developing a short-term SMART goal related to mental health. Will continue IOP to increase self-confidence, improve consistent use of skills, and prevent decompensation. Narrative Note: []
--- NOTE | 2023-01-31 09:01 | BH.SGPN.GN ---
Behaviors/Verbalizations/Mental Status: [] Eye contact is good. Motor activity is appropriate. Appearance is casual. Speech is Appropriate. Mood is euthymic. Affect is congruent. Thoughts are linear and logical. No evidence of psychosis. Reviewed daily check in sheet and reports no suicidal thoughts. Client Response/Progress/Benefit: [] Pt participated when prompted. Attentive. Daily symptom tracker notes 0/5 for depression and 1/5 for anxiety. Pt reported mental health positive as going to get her medications despite feeling anxious about going. Pt stated additional positive as starting her accomplishment journal. Pt reported current stressor as having to house sit for her mom for the week and is worried she will struggle with not being around chaos. Pt stated she has a hard time being in a quiet environment because she's used to being in chaos at both her home and work. Seemed to benefit from support from peers. Will continue in IOP to continue use of healthy coping skills, stabilize mood, and prevent decompensation.
--- NOTE | 2023-01-31 10:10 | BH.SGPN.GN ---
Behaviors/Verbalizations/Mental Status: []Client alert and oriented, casually dressed and groomed. Eye contact good. Motor activity appropriate. Speech within normal limits. Affect congruent, mood depressed. Thoughts linear, logical, no signs of hallucinations or delusions. Client Response/Progress/Benefit: []Pt engaged in session AEB listening attentively to others and providing insight to group discussion. Pt engaged in activity, able to connect how it can be uncomfortable and difficult to accept when things are out of one?s own control. Pt worked with group to identify what things in life can be hard to accept. Group identified things hard to accept as: of a loved one, body image, loss of relationship, mental health diagnosis, other?s behaviors, and past decisions. Pt worked on identifying what personal things are hard to accept for themself, sharing family?s thoughts, behaviors, and opinions, as well as other people suffering are things pt struggles with accepting. Pt seemed to benefit from increased awareness of importance of acceptance. Pt to continue IOP to improve mood stability, increase healthy decision making, and prevent decompensation. Narrative Note: []
--- NOTE | 2023-01-31 11:10 | BH.SGPN.GN ---
Behaviors/Verbalizations/Mental Status: []Pt alert and oriented, neatly dressed and groomed. Eye contact good. Motor activity appropriate. Speech within normal limits. Affect congruent, mood euthymic. Thoughts linear, logical, no signs of hallucinations or delusions. Client Response/Progress/Benefit: []Pt responded well to session AEB taking notes and contributing to discussion throughout. Pt engaged as group continued discussion on acceptance and the mental health benefits of practicing acceptance. Pt and peers identified what makes acceptance challenging and pt completed a self-reflection exercise on what is hard to accept in pt's life. Pt identified struggling to accept that her family has a negative impact on her mental health. Group identified strategies to increase acceptance and pt shared wanting to focus on setting boundaries and using a pros and cons list to reflect on why pt wants those boudnaries. Pt appeared to benefit from gaining insight and learning strategies to increase acceptance. Pt will continue IOP tx to improve mood stability, reduce use of unhealthy coping skills, and improve daily functioning. Narrative Note: []
--- NOTE | 2023-01-31 14:42 | BH.MTP_ITS ---
Treatment Plan Review Demographics Date of Admission:: 01/08/23 Date of Treatment Plan Review:: 01/31/23 Admitting Diagnoses:: 1. Bipolar 2 disorder (currently depressed) F31.81 2. PTSD 3. Generalized anxiety disorder 4. Binge eating disorder 5. Strong cluster B traits Current Diagnoses:: 1. Bipolar 2 disorder (currently depressed) F31.81 2. PTSD 3. Generalized anxiety disorder 4. Binge eating disorder 5. Strong cluster B traits Patient Status Patient's Response to Treatment:: Pt responding well to treatment AEB consistent attendance, engagement in groups, and follow through with completing homework outside treatment environment. Status of Current Problems and Symptoms: Ongoing problems. Continues to report moderate anxious and depressed symptoms with a significant increase in hypomanic symptoms. Client reporting sharp increase in hypomania recently and this mood state is lasting longer than usual for her. Client has been able to follow plan created with therapist to help prevent impulsive spending and impulsive decision making. Per DSM 5 cross cutting measure at review scores indicate an overall 10% decrease in symptoms. Progress Problem #1: Problem Name:: mood instability Status of Goals:: obj 1 - partially met, ongoing work encouraged. client able to identify healthy coping skills like opposite action, using support, challenging negative thoughts, and changing environment. struggles with consistent use of skills. obj 2 - not met. Per DSM 5 cross-cutting measure at review depressed scores indicate a 16% decrease in symptoms and a 81% increase in hypomania. Team Recommendations:: Team recommends client meet with [facility] psychiatrist to explore medication adjustment due to recent increase in mood cycling. Team also recommends continued goals and objectives with reinforcement of healthy skills and exploration on how to increase consistent use of skills. Problem #2: Problem Name:: Anxiety Status of Goals:: obj 1 - partially met. client can identify calming skills like breathing, grounding, and mindful walking. struggles with in the moment use of skills. obj 2 - improvement, not met. Per DSM 5 cross cutting measure scores indicate a 20% decrease in anxious symptoms. Team Recommendations:: Team recommends client meet with [facility] psychiatrist to explore medication adjustment due to recent increase in mood cycling. Team also recommends continued goals and objectives with reinforcement of healthy skills and exploration on how to increase consistent use of skills.
--- NOTE | 2023-02-02 09:05 | BH.SGPN.GN ---
Behaviors/Verbalizations/Mental Status: [] Eye contact is good. Motor activity is appropriate. Appearance is casual. Speech is Appropriate. Mood is depressed. Affect is congruent. Thoughts are linear and logical. No evidence of psychosis. Reviewed daily check in sheet and pt reports 1/5 for suicidal ideations and 1/5 for intent. This is an increase and primary therapist made aware. Client Response/Progress/Benefit: [] Pt participated at times during the group discussion. Attentive. Daily symptom tracker notes 3/5 for anxiety and 2/5 for irritability and self-harm urges. Increased anxiety and negative thoughts related to upcoming return to work next week. Believes that her first day back will be overwhelming and listed reasons for this perspective. Placing unrealistic expectations on herself for her return. Group was able to identify cognitive distortions (Catastrophizing) and offered suggestions for through-reframing which was beneficial. Normalized her anxiety and group was able to offer insight/empathy. Regression noted due to increased stress of returning to work next week. Benefited from group support, encouragement, and feedback. Will continue in IOP to prevent decompensation, maintain safety, and improve functioning to return to work. Narrative Note: []
--- NOTE | 2023-02-02 11:13 | BH.SGPN.GN ---
Behaviors/Verbalizations/Mental Status: [] Client alert and oriented, neatly dressed and groomed. Eye contact good. Motor activity appropriate. Speech within normal limits. Affect full, mood euthymic. Thoughts linear, logical, no signs of hallucinations or delusions Client Response/Progress/Benefit: [] Client responded well to session AEB completing the resilience worksheet provided. Client actively participated in the discussion and worked cooperatively with group to identify strategies to enhance each of the components discussed. Client reports belief they already use resilience trait of ?taking care of themselves? Client discussed that they could work on making connections. Client indicated they plan to accomplish this by accepting supports from others. Client seemed to benefit from discussing strategies for improving personal resilience and identifying resilience traits client already possesses. Will continue IOP tx to prevent decompensation and increase overall functioning. Narrative Note: []
== END 2023-02-05 23:59 ==
LOC: BHIOP 09:59
PROVIDERS: PCP Family Medicine; Referring Provider Psychiatry & Neurology Psychiatry; Visit Provider Psychiatry & Neurology Psychiatry
DX: F31.81 Bipolar II disorder (principal); F43.10 Post-traumatic stress disorder, unspecified; F41.1 Generalized anxiety disorder; F50.81 Binge eating disorder
CPT/HCPCS: S9480; 90832; 90834; 90837; 90853

== ENCOUNTER 2023-02-06 07:17 | Outpatient (RCR) | payer BC, SELFPAY ==
[2023-02-06 00:22] VITALS: BP 143/94; PULSE 68
--- NOTE | 2023-02-06 09:05 | BH.SGPN.GN ---
Behaviors/Verbalizations/Mental Status: [] Pt alert and oriented, neatly dressed and groomed. Eye contact good. Motor activity appropriate. Speech within normal limits. Affect congruent, mood confused. Thoughts linear, logical, no signs of hallucinations or delusions. Reviewed pt?s symptom tracker, no risk for suicidal ideation, plan, or intent 02/06/23 Client Response/Progress/Benefit: []Pt responded well to session, attentive and engaged. Pt reports feeling confused this morning as pt has returned to work and pt is learning that it is the work environment that is worsening pt's mental health. Pt shared she needs to figure out what she wants to do so pt does not continue the cycle. Pt stated she has been following her return to work plan which includes getting up and walking during the day and doing something fun after work instead of sleeping. Pt reports this has been beneficial. Pt appeared to benefit from reflecting on their application of coping skills. Pt will continue IOP tx to promote mood stability, further improve self-confidence, and promote gains. Narrative Note: []
--- NOTE | 2023-02-06 10:05 | BH.SGPN.GN ---
Behaviors/Verbalizations/Mental Status: [] Eye contact is good. Motor activity is appropriate. Appearance is casual. Speech is Appropriate. Mood is anxious. Affect is congruent. Thoughts are linear and logical. No evidence of psychosis Client Response/Progress/Benefit: [] Pt was an active participant in group discussions. Attentive during psychoeducation on 4 Communication Styles (Passive, Passive-Aggressive, Aggressive, Assertive). Convened in small group and participated during interactive discussion on benefits and disadvantages of each communication style. Majority of this group was based in introducing and educating on communication styles. Pt believes that she starts off passive then becomes passive-aggressive or aggressive. Benefited from increased education and awareness on communication styles and their impact on relationships/mental health. Will continue in IOP to prevent decompensation, stabilize mood, and improve functioning to transition back to work. Narrative Note: []
--- NOTE | 2023-02-06 11:10 | BH.SGPN.GN ---
Behaviors/Verbalizations/Mental Status: []Client alert and oriented, casually dressed and appropriately groomed. Eye contact fair. Motor activity appropriate. Speech WNL. Affect congruent, mood euthymic. Thoughts linear, logical, no signs of hallucinations or delusions. Client Response/Progress/Benefit: []Client responded well to session AEB client listening attentively to others and providing input during group discussion on the pay offs and costs of the different communication styles. Client able to connect how current communication style impacts mental health. Client engaged in activity, used assertive communication throughout in order to accomplish task. Connected with peers comments about importance of using assertive communication. Client shared she struggles with asserting herself and communicating her needs at work. Client reported to work on communication she is going to make a list of her boundaries/needs and talk to her boss about it. Client seemed to benefit from increasing awareness of healthy strategies to improve communication. Will continue IOP tx to assist with transition back to work, increase consistent use of healthy coping, and prevent decompensation.
--- NOTE | 2023-02-07 11:54 | PCM.BH.PN_ITS ---
Progress Note Progress Note: History of Present Illness/Interim History: The patient is a 27-year-old single female with a history of bipolar 2 disorder, anxiety and suicidal ideation who is seen in follow-up at the [facility] behavioral health IOP program. I last saw the patient 1 month ago and at that time no medication changes were made as the patient was seeing her outpatient physician the next day. The patient states that her Caplyta was increased about 1 month ago to 42 mg at bedtime. The patient states that she feels she has been rapid cycling and had a hypomanic episode for the past 8 days which waxes and wanes but has been pretty consistent. She has increased impulsivity and increased spending of mon ey when she is like this and her family has taken control of her finances for now. She has not done any traveling and is still sleeping but a little less than before. The patient is working but a reduced schedule now and is able to function okay there. She feels she is learning valuable coping skills in the program but sometimes has difficulty using them. Despite the hypomania the patient feels she is overall doing much better than 1 month ago. She does has a history of cutting her leg 2 weeks ago which she discussed with her therapist but no self-harm since 2 weeks ago. She has been able to decrease her alcohol use down to once or twice a week and and she only drinks 1-2 drinks when she does drink now. Describes her mood as up-and-down but denies passive thoughts of , suicidal ideation, plan for suicide, homicidal ideation, hallucinations or delusions. She denies any purging. The patient was seen by telehealth today. Current Psychiatric Medications: [] Caplyta 42 mg p.o. nightly (dose increased about 1 month ago); Zoloft 100 mg p.o. daily (x8 months now dose decreased 2 months ago but brought back up because her anxiety increased) Mental Status Examination: [] The patient is a 27-year-old female who is overweight and wears glasses and appears slightly younger than stated age. She is casually dressed and groomed with good hygiene and has no psychomotor agitation or retardation. Eye contact is good by telehealth and speech is normal rate and rhythm and fluent with no pressure. Speech is not rapid or pressured. Mood is euthymic. Affect is full and normal. Thought process is goal-directed and organized. Thought content: There is no evidence of passive thoughts of , suicidal ideation, plan for suicide, homicidal ideation, hallucinations, delusions or thoughts of self-harm. There is evidence of recent hypomania symptoms that wax and wane according to the patient. Reality testing is intact. Judgment is intact. Insight: Limited but improving. Impulsivity: Moderate to high. Diagnoses: [] 1. Bipolar 2 disorder 2. PTSD 3. Generalized anxiety disorder 4. Binge eating disorder 5. Strong cluster B traits 6. Primary support and work issues Plan: [] The patient will continue the IOP program at [facility] as the structure, support, education and group therapy will hopefully prevent worsening of the patient's symptoms. She felt safe during the interview and if it anytime she does not feel safe she will let us know or go to the emergency room. Discussion was had with the patient that her rapid cycling could be caused and worsened by taking an antidepressant such as Zoloft. The increase in her dose of Caplyta should help prevent this also but the patient agrees to decrease her Zoloft to 50 mg p.o. daily and see how she does on this. If she tolerates this we will continue to wean and possibly discontinue it later. She will continue to follow-up with her outpatient providers and I will see the patient in 2 weeks for follow-up or as needed.
--- NOTE | 2023-02-08 10:44 | BH.MDN_ITS ---
Multi-Disciplinary Note Note 45-min Individual: Time Started:: 09:02 Date: 02/08/23 Purpose of session/treatment goals addressed:: Purpose of session was to address goals 1 and 2 from MTP and discuss work plan. Eye Contact:: Good Motor Activity:: Restless Appearance:: Casual Speech:: Rambling and Rapid Mood:: Anxious Affect:: Congruent Thoughts:: Racing and No evidence of hallucinations/delusions noted Staff Interventions:: thought challenging, CBT techniques, discharge planning, strengths perspective, goal setting, taught coping skills (assertiveness) and other (return to work plan) Client Response:: Pt reported her second day of work was worse than her first day back. Pt stated her boss was back to work, but they did not have a chance to talk about expectations for her with being back two days a week. Pt reported she found out there were many projects that had not been worked on since she's been on leave. Pt stated she was pulled into more tasks and responsibilities which made her feel very overwhelmed and increased her stress level. Pt reported she doesn't know how she can make her job more doable because there are many people that delegate more and more tasks to her. Pt stated she noticed she started to spiral yesterday and is worried if things don't change at work she will go back to how she was doing. Pt open to problem solving ideas on how to make work more manageable. Although she is anxious about the idea of sett ing boundaries or being more assertive with her boss she is realizing if she doesn't advocate for change she will not be able to maintain this job. Pt open to many ideas discussed on how to be more assertive at work and encouraged to write down what she would like to talk to her boss about on Sunday. Pt agreed it could be helpful to state to others that delegate more tasks to her a tentative time frame before she could complete the new task this way she doesn't feel pressured to complete all the tasks at once. Pt reported feeling less doom and gloom about going back to her job. Pt expressed some apprehension about this weekend because her family will be going away and she has no plans for this weekend. Pt stated she didn't want to go away this weekend and be around family drama, but hasn't been alone at the house for awhile. Pt and therapist discussed various ideas on what she could do to allow herself to relax and have things she can do outside the house. Pt reported feeling better about her weekend plan. Risks/Concerns:: Denies suicidal ideation, plan or intention to date. Progress Toward Goals/Plan:: Progress noted with client being able to problem solve in session and challenge her anxious/negative perspective in the moment. Pt reporting use of healthy coping skills more consistently like journaling, crafting, identifying accomplishments, and asking for help. Pt is reporting increased anxiety after going back to work this week. Pt reporting feeling overwhelmed because there are bigger messes to tackle since her co- workers didn't complete several of the tasks/projects since she's been on leave. Time Stopped:: 09:46
--- NOTE | 2023-02-08 11:10 | BH.SGPN.GN ---
Behaviors/Verbalizations/Mental Status: []Pt alert and oriented, casual dress, hygiene tended to. Eye contact good. Motor activity WNL. Speech appropriate rate and tone. Affect congruent, mood anxious and euthymic.? Thoughts linear, logical, no signs of hallucinations or delusions. Client Response/Progress/Benefit: []Pt engaged in session as evidenced by listening to others and providing input throughout. Pt completed problem solving example with group and identified a goal they want to work on. Goal identified as: Improving her ability to? maintain consistent mood stability. Pt?s barriers included: negative thinking/distortions, not prioritizing self-care, unrealistic expectations, hopelessness. Pt also identified steps they could take such as taking medications daily, improving consistency of regular sleep schedule, creating a morning routine, and reaching out to supports for help. Pt seemed to benefit from learning about problem solving methods and rehearsing problem-solving skills in the moment. Pt will continue IOP tx to promote mood stability, improve confidence in self, and further reduce negative thinking. Narrative Note: []
--- NOTE | 2023-02-09 09:05 | BH.SGPN.GN ---
Behaviors/Verbalizations/Mental Status: [] Eye contact is good. Motor activity is appropriate. Appearance is casual. Speech is Appropriate. Mood is anxious/irritable. Affect is congruent. Thoughts are linear and logical. No evidence of psychosis. Reviewed daily check in sheet and no reports of suicidal thoughts. Client Response/Progress/Benefit: [] Pt participated at times during the group discussion. Attentive. Daily symptom tracker notes 08/13 for irritability. Shared that she is going through some medication changes which have impacted her mood however ? I didn?t let it ruin my day?. Completing self-care. Utilizing opposite action. Setting healthy boundaries. Using CBT techniques. In the past she struggled with poor boundaries and people-pleasing which often led to resentments, feeling overwhelmed, and never having time to herself. She has made significant progress in setting healthy boundaries. Progress noted per pt report. Benefited from group support, encouragement, and feedback. Will continue in IOP to prevent decompensation and increase healthy coping skills. Narrative Note: []
--- NOTE | 2023-02-09 10:15 | BH.SGPN.GN ---
Behaviors/Verbalizations/Mental Status: []Pt alert and oriented, neatly dressed and groomed. Eye contact good. Motor activity appropriate. Speech within normal limits. Affect congruent, mood anxious. Thoughts linear, logical, no signs of hallucinations or delusions. Client Response/Progress/Benefit: []Pt was an active?participant in small group discussion. Pt?s group worked together to identify benefits of healthy relationships which include; reduce stress, provide motivation, and fulfill needs. Group identified factors that lead to unhealthy relationships. Pt?s personal factors were co-dependency and not knowing what healthy looks like.?Actively participated in group experiential activity and expressed ideas to group. Benefited from increased insight and awareness of benefits of healthy relationships and factors that contribute to unhealthy relationships. Will continue IOP tx to promote mood stability, increase work-related functioning, and improve self-compassion. Narrative Note: []
--- NOTE | 2023-02-09 11:10 | BH.SGPN.GN ---
Behaviors/Verbalizations/Mental Status: [] Client alert and oriented, casually dressed and groomed. Eye contact good. Motor activity appropriate. Speech within normal limits. Affect congruent, mood euthymic, anxious. Thoughts linear, logical, no signs of hallucinations or delusions. Client Response/Progress/Benefit: [] Client responded well to session, engaged and taking notes. Worked with group to identify characteristics of healthy and unhealthy relationships. Attentive during psychoeducation about characteristics of healthy, unhealthy, and abusive relationships. Client stated within their current relationships she does well with respect and communication. Client reported an area she would like to improve in is trust. Client shared she could so by working to forgive the past with her counselor. Appeared to benefit from identifying area client wants to work on to build healthier relationships. Client to continue IOP to increase healthy coping skills, challenge distortions, and prevent decompensation. Narrative Note: []
--- NOTE | 2023-02-13 10:10 | BH.SGPN.GN ---
Behaviors/Verbalizations/Mental Status: []Pt alert and oriented, appropriate grooming/appearance. Eye contact good. Motor activity appropriate. Speech within normal limits. Affect congruent, mood anxious. Thoughts linear, logical, no signs of hallucinations or delusions. Client Response/Progress/Benefit: []Pt was an engaged participant AEB taking notes, engaging in small group discussion and listening attentively to others. Attentive during psychoeducation. Contributed during interactive discussions in which peers attempted to define crisis. Pt identified some examples of potential crisis. Group also worked together to identify unhealthy responses to crisis which included: isolation, self-harm, substance abuse, avoidance, and lashing out. Pt identified personal warning signs as: extreme exhaustion, increase/decrease in sleep, isolation, and pushing others away. Benefited from increased understanding of crisis and awareness of personal responses to crisis. Pt will continue IOP tx to continue use of healthy coping, reintegrate back into work environment, and prevent decompensation.
--- NOTE | 2023-02-13 11:05 | BH.SGPN.GN ---
Behaviors/Verbalizations/Mental Status: [] Eye contact is good. Motor activity is appropriate. Appearance is casual. Speech is Appropriate. Mood is anxious. Affect is congruent. Thoughts are linear and logical. No evidence of psychosis Client Response/Progress/Benefit: [] Pt was an active participant in group discussions. Attentive during psychoeducation. In small group pt along with peers developed an active plan for their crisis warning signs. Pt identified two crisis warning signs as well as an action plan for each. One crisis warning sign is sleeping too much with an actions plan that involved; morning routine, night routine, take meds on time, no naps. Other warning sign was isolation with an action plan that involved; opposite action, go outside, set goals, schedule plans, ask for help. Benefited from increased awareness of crisis warning signs and by developing crisis intervention strategies. Will continue in IOP to prevent decompensation, stabilize mood, increase healthy coping, and improve functioning to return to work. Narrative Note: []
--- NOTE | 2023-02-15 09:00 | BH.SGPN.GN ---
Behaviors/Verbalizations/Mental Status: []Pt alert and oriented, casually dressed and groomed. Eye contact fair Motor activity appropriate. Speech within normal limits. Affect constricted, mood anxious and dysthymic. Thoughts linear, logical, no signs of hallucinations or delusions. Reviewed pt?s symptom tracker, no risk for suicidal ideation, plan, or intent. Client Response/Progress/Benefit: []Pt responded well to session, receptive to group support. Pt reported mental health positive as going to concert with his sister and being able to enjoy herself. Pt stated additional positive as using opposite action while at work to get things accomplished. Pt stated current stressor as being back to work and realizing it's not a healthy environment for her. Stated she has been trying to use distraction as a coping skill. Pt seemed to benefit from support from group support. Pt will continue IOP tx to assist with transition back to work, increase healthy coping, and prevent decompensation.
--- NOTE | 2023-02-15 10:05 | BH.SGPN.GN ---
Behaviors/Verbalizations/Mental Status: []Pt alert and oriented, neatly dressed and groomed. Eye contact good. Motor activity appropriate. Speech within normal limits. Affect congruent, mood euthymic. Thoughts linear, logical, no signs of hallucinations or delusions. Client Response/Progress/Benefit: [] Pt was active participant in group discussions and activities. Attentive during psychoeducation. Pt listened during interactive discussion in which the group defined self-care and discussed its benefits. ?Worked with peers in a small group to identify myths related to self-care which included; self-care means ?you?re neglecting other things,? other people will not be understanding, and it should just be ?fun stuff.? Pt participated in small groups where they worked to bust these self-care myths. Pt shared she has been taking breaks at work and this has been helpful. Benefited from increased awareness of self-care, its benefits, and the consequences of not utilizing self-care strategies. Will continue IOP tx for one more day to reinforce healthy coping skills. Narrative Note: []
--- NOTE | 2023-02-15 11:05 | BH.SGPN.GN ---
Behaviors/Verbalizations/Mental Status: []Pt alert and oriented, neatly dressed and groomed. Eye contact good. Motor activity appropriate. Speech within normal limits. Affect congruent, mood content. Thoughts linear, logical, no signs of hallucinations or delusions. Client Response/Progress/Benefit: [] Pt engaged participant AEB completing self-assessment worksheet and providing input throughout discussion. Pt completed worksheet identifying current self-care practices and what self-care activities pt wants to start using. Pt selected professional self-care to begin practicing more consistently. Pt plans to do this by looking at new jobs to find a work place that is less toxic. Appeared to benefit from completing the self-care evaluation and gaining insights into current self-care practices, as well as identifying areas in which pt would like to improve upon.? Pt will continue IOP tx for one more day to reinforce healthy coping skills and promote gains. Narrative Note: []
--- NOTE | 2023-02-16 09:00 | BH.SGPN.GN ---
Behaviors/Verbalizations/Mental Status: [] Eye contact is good. Motor activity is appropriate. Appearance is casual. Speech is Appropriate. Mood is depressed/irritable. Affect is congruent. Thoughts are linear and logical. No evidence of psychosis. Reviewed daily check in sheet and no reports of suicidal ideations or intent. Client Response/Progress/Benefit: [] Pt participated at times during the group discussion. Attentive. Daily symptom tracker notes 5 for depression and /5 for anxiety. Shared with the group that today is her last day in IOP. Briefly discussed her progress as well as recent insights. Work continues to be a significant stressor in her life and she is beginning to apply decision-making skills to determine if current working environment is sustainable for her mental wellness. Discussed being low yesterday however she was able to identify and utilize skills. Reports more tools and increased confidence in her ability to manage mood. Reports feeling more in control of her emotions and thoughts. Overall progress noted in IOP. Benefited from group support, encouragement, and feedback. Pt will be discharged from [facility] level of care today. Narrative Note: []
--- NOTE | 2023-02-16 10:10 | BH.SGPN.GN ---
Behaviors/Verbalizations/Mental Status: []Eye contact is good. Alert and oriented. Motor activity is appropriate. Appearance is casual. grooming is appropriate. Speech is Appropriate. Mood is anxious and euthymic. Affect is congruent. Thoughts are linear and logical. No evidence of psychosis or hallucinations. Client Response/Progress/Benefit: []Client passive participate AEB providing limited contributions, however did appear to listen attentively to others and taking notes throughout. The group identified the impact of emotions on communication such as change in tone, body language, shutting down, misperceiving the communication, and not being able to express oneself. Client shared struggling with identifying her emotions at times. During group activity, client struggled to participate and reflected on feeling anxious which led to her taking a step away and shutting down at times. Client benefited from session by gaining an increased understanding on the importance of managing emotions to improve daily functioning. Client will d/c from IOP tx given progress made overall and continue with individual outpatient counseling. Narrative Note: []
--- NOTE | 2023-02-16 11:10 | BH.SGPN.GN ---
Behaviors/Verbalizations/Mental Status: []Pt alert and oriented, casually dressed and groomed. Eye contact good. Motor activity appropriate. Speech within normal limits. Affect congruent, mood anxious. Thoughts linear, logical, no signs of hallucinations or delusions. Client Response/Progress/Benefit: [] Pt engaged in session AEB Pt listening attentively to peers and providing input. Attentive during psychoeducation on 4 zones of regulation. Pt able to identify feelings and behaviors for each zone. Pt identified coping skills one can use to support self in each zone. Pt reports majority of the time she is in the yellow and blue zones. Reported skills can practice when needs to manage emotions in the yellow zone include: cleaning, venting, AMSR, deep breathing, and positive affirmations. Benefited from increased education on zones of regulation or stages of alertness for emotions and healthy coping skills to use for each zone. Pt has made significant treatment progress and will discharge from [facility] today. Returns to work full-time on 02/19/23.
--- NOTE | 2023-02-16 15:30 | BH.DS_ITS ---
Discharge Summary Demographics Date of Admission:: 01/08/23 Discharge Date: 02/16/23 Presenting Problems at Admission:: The patient is a 27-year-old single, female with a history of bipolar 2 depression, anxiety and suicidal ideation which has been worsening over the past 3 months. Work is a big stressor for the patient as there has been big changes at work and has been hard for her to function well at work and understand all the changes required in her job position. Planning on being FMLA due to MH impacting work functioning. The patient has a history of self-harm by cutting and the most recent episode was in July 2022 when she got in a hot shower to burn her skin. The patient has increased her alcohol use over the past 3 months and it had been up to 3-4 drinks about 4 days each week. She endorses sadness, hopelessness, worthlessness, apathy, lack of motivation, anhedonia, initial insomnia, low energy, decreased concentration, guilt, passive thoughts of , passive, fleeting suicidal ideation a few times a week only. She is a worrier by nature a nd has not had any panic attacks though since 1 month ago. Discharge Diagnoses:: 1. Bipolar 2 disorder (currently depressed) F31.81 2. PTSD 3. Generalized anxiety disorder 4. Binge eating disorder 5. Strong cluster B traits Reason for Discharge:: Pt has shown improve daily functioning, improved mood stability, and no longer meets criteria for [facility] level of care. Treatment Progress During Treatment & Response: Per DSM 5 cross-cutting measure at discharge scores show a 50% reduction in depression, 100% reduction in thoughts of hurting self, and a 40% reduction in anxiety. Client reports improve daily functioning, improved mood stability with less mood cycling, increased awareness of her negative/distorted thoughts, and improved ability to manage depressed and anxious symptoms. Pt responded well to treatment AEB consistent attendance, engagement in group sessions, and did god job of following through with homework. Issues Still to be Addressed:: Could benefit from continued reinforcement of healthy coping skills, challenging distortions, setting/maintaining boundaries, and adjusting back to work. Client could also benefit from working with outpatient therapist on decreasing her binge eating. Discharge Recommendations/Instructions:: 02/20/23 appointment with outpatient therapist at [facility] 02/20/23 appointment at [place] [id number] with her psychiatrist Discharge Handout
--- NOTE | 2023-02-16 16:53 | BH.MDN_ITS ---
Multi-Disciplinary Note Note 30-min Individual: Time Started:: 12:05 Date: 02/16/23 Purpose of session/treatment goals addressed:: Purpose of session was to review treatment progress, complete maintenance plan, and solidify aftercare plans. Eye Contact:: Good Motor Activity:: Appropriate Appearance:: Neat Speech:: Appropriate Mood:: Euthymic and Anxious (slightly) Affect:: Congruent Thoughts:: Linear, Logical and No evidence of hallucinations/delusions noted Staff Interventions:: discharge planning, strengths perspective and other (maintenance planning) Client Response:: Client stated feeling a little sad about being done with IOP today. She reported she is going to miss having the support and is worried about returning to work full-time. client reported she recognizes she is in a better place compared to when she first started IOP. Client identified significant progress with decreasing her drinking of alcohol from almost daily to once a week. Client stated she was on a concerning path on drinking alcohol as a way of coping most days and is happy that she has been able to replace that behavior with healthier choices. Client stated she also hasn't engaged in self- harm in over three weeks. Client reported additional treatment progress is improved mood stability, increased use of healthy coping skills, ability to challenge negative thinking, and decreased anxiety. Client stated experiencing mild to moderate anxiety and depression which she attributes to returning to work and realizing her work environment is unhealthy for her. Client reported feeling a little more hopeful now that she has a plan of trying to find a job t hat is more supportive and healthy for her. Client worked with therapist to develop a maintenance plan in which she identified triggers, warning signs, self-care activities, and healthy coping skills. Risks/Concerns:: Denies suicidal ideation, plan, or intention to date. Progress Toward Goals/Plan:: Progress noted with client reporting improved mood stability, increased use of healthy coping skills, and improved ability to manage her mental health symptoms. When she first started IOP she was drinking alcohol 4-5 days a week as a way to cope with her symptoms. She no longer is drinking alcohol with the intention to cope and has cut her drinking to once a week and some weeks doesn't drink. Client reports improved daily functioning with getting things done around her house, improved personal hygiene, and decreased mood cycling. Client is still reporting mild to moderate anxiety and depression symptoms which she attributes to returning back to a chaotic work environment. Client has appointment with outpatient therapist and outpatient psychiatrist on 02/20/23. Time Stopped:: 12:30
== END 2023-02-16 12:06 | disposition home or self-care (01) ==
LOC: BHIOP 07:17
PROVIDERS: PCP Family Medicine; Referring Provider Psychiatry & Neurology Psychiatry; Visit Provider Psychiatry & Neurology Psychiatry
DX: F31.81 Bipolar II disorder (principal); F43.10 Post-traumatic stress disorder, unspecified; F41.1 Generalized anxiety disorder; F50.81 Binge eating disorder
CPT/HCPCS: S9480; 90832; 90834; 90853